=== PATIENT | male | born 1970 | race Hispanic/Latino ===

== ENCOUNTER 2018-07-14 07:23 | Observation (INO) | payer OTHER ==
[2018-07-14 07:29] VITALS: BMI 31.1
--- NOTE | 2018-07-14 08:06 | ED PDOC ---
HPI: Chest Pain Time Seen by Provider: 07/14/18 07:32 Chief Complaint (Nursing): Chest Pain Chief Complaint (Provider): Chest Pain History Per: Patient History/Exam Limitations: no limitations Onset/Duration Of Symptoms: Hrs (x20) Additional Complaint(s): Patient is 47 y/o male with no significant medical history who presents to the ED complaining of palpitations for the past x20 hours. Patient states he has had these symptoms in the past but was never diagnosed with anything. Patient returned from [place] about a week ago. He reports associated nausea, light headedness and midsternal chest tightness. He denies calf pain or leg swelling. Past Medical History Reviewed: Historical Data, Nursing Documentation, Vital Signs Vital Signs: Last Vital Signs Temp 97.6 F 07/14/18 07:40 Pulse 101 H 07/14/18 09:52 Resp 17 07/14/18 07:40 BP 123/78 07/14/18 07:40 Pulse Ox 98 07/14/18 09:52 - Medical History PMH: No Chronic Diseases - Social History Current smoker - smoking cessation education provided: No Alcohol: Social - Allergies Allergies/Adverse Reactions: Allergies Allergy/AdvReac Type Severity Reaction Status Date / Time No Known Allergies Allergy Verified 07/14/18 07:48 Review of Systems ROS Statement: Except As Marked, All Systems Reviewed And Found Negative Constitutional: Negative for: Fever Cardiovascular: Positive for: Chest Pain, Palpitations, Light Headedness. Negative for: Edema (leg swelling) Gastrointestinal: Positive for: Nausea Musculoskeletal: Negative for: Leg Pain (calf pain) Physical Exam - Reviewed Nursing Documentation Reviewed: Yes Vital Signs Reviewed: Yes - Physical Exam Appears: Positive for: Non-toxic, No Acute Distress Head Exam: Positive for: ATRAUMATIC, NORMOCEPHALIC Skin: Positive for: Normal Color, Warm, Dry Eye Exam: Positive for: EOMI, Normal appearance, PERRL Neck: Positive for: Normal, Painless ROM, Supple Cardiovascular/Chest: Positive for: Irregularly Irregular Respiratory: Positive for: Normal Breath Sounds. Negative for: Respiratory Distress Gastrointestinal/Abdominal: Positive for: Normal Exam, Soft. Negative for: Tenderness Back: Positive for: Normal Inspection. Negative for: L CVA Tenderness, R CVA Tenderness Extremity: Positive for: Normal ROM. Negative for: Pedal Edema, Deformity Neurologic/Psych: Positive for: Alert, Oriented (x3). Negative for: Motor/ Sensory Deficits - Laboratory Results Result Diagrams: 07/14/18 08:10 07/14/18 08:10 - ECG ECG Rhythm: Positive for: Atrial Fibrillation (at 101) Rate: 101 O2 Sat by Pulse Oximetry: 98 (RA) Pulse Ox Interpretation: Normal Medical Decision Making Medical Decision Making: Time: 08:02 Impression: new onset afib Initial Plan: --CT head w/o contrast --EKG --CMP --Magnesium --Phosphorous --TSH --Troponin I --ED urine dipstick --CBC w/ diff --D Dimer --PTT --Prothrombin Time --CXR --UA Time: :43 CT Head FINDINGS: HEMORRHAGE: No intracranial hemorrhage. BRAIN: No mass effect or edema. No atrophy or chronic microvascular ischemic changes. VENTRICLES: Unremarkable. No hydrocephalus. CALVARIUM: Unremarkable. PARANASAL SINUSES: Unremarkable as visualized. No significant inflammatory changes. MASTOID AIR CELLS: Unremarkable as visualized. No inflammatory changes. OTHER FINDINGS: None. IMPRESSION: Normal CT of the Head. No intracranial mass, hemorrhage or evidence of acute infarct. Time: 10:[address] Baum ----- Scribe Attestation: Documented by Ish Herrera, acting as a scribe for Eden Hicks MD. Provider Scribe Attestation: All medical record entries made by the Scribe were at my direction and personally dictated by me. I have reviewed the chart and agree that the record accurately reflects my personal performance of the history, physical exam, medical decision making, and the department course for this patient. I have also personally directed, reviewed, and agree with the discharge instructions and disposition. Disposition - Disposition Forms: ELIKE (Frisian)
[2018-07-14 08:22] LABS: BASO % 0.5 % (0.0-2.0); EOS # 0.2 K/uL (0.0-0.7); EOS % 2.7 % (0.0-4.0); HEMOGLOBIN 17.6 g/dL (12.0-18.0); LYMPH # 1.7 K/uL (1.0-4.3); LYMPH % 22.5 % (20.0-40.0); MEAN CELL VOLUME 90.3 fl (80.0-94.0); MEAN CORPUSCULAR HEMOGLOBIN 31.4 pg (27.0-31.0); MEAN CORPUSCULAR HGB CONC 34.8 g/dL (33.0-37.0); MEAN PLATELET VOLUME 8.7 fl (7.2-11.7); MONO # 0.7 K/uL (0.0-0.8); MONO % 9.1 % (0.0-10.0); NEUT # 4.9 K/uL (1.8-7.0); NEUT % 65.2 % (50.0-75.0); NRBC % 0.2 % (0.0-0.0); RBC 5.61 Mil/uL (4.40-5.90); RED CELL DISTRIBUTION WIDTH 13.1 % (11.5-14.5); WHITE BLOOD COUNT 7.4 K/uL (4.8-10.8)
[2018-07-14 08:31] LABS: INR 1.2; PROTHROMBIN TIME 13.6 Seconds (9.8-13.1)
[2018-07-14 08:36] LABS: ALB/GLOB RATIO 1.2 (1.0-2.1); ALBUMIN 4.3 g/dL (3.5-5.0); ALT/SGPT 42 U/L (21-72); AST/SGOT 27 U/L (17-59); BLOOD UREA NITROGEN 15 mg/dl (9-20); CALCIUM 9.3 mg/dL (8.4-10.2); GFR AFRICAN-AMERICAN > 60; GFR NON-AFRICAN AMERICAN > 60
[2018-07-14 09:29] LABS: SQUAMOUS EPITHIAL < 1 /hpf (0-5); URINE BACTERIA RARE (<OCC); URINE BILIRUBIN NEGATIVE (NEGATIVE); URINE CLARITY CLEAR (Clear); URINE COLOR YELLOW (YELLOW); URINE GLUCOSE (UA) NEG (Normal); URINE LEUKOCYTE ESTERASE NEG Leu/uL (Negative); URINE PROTEIN NEGATIVE (NEGATIVE); URINE UROBILINOGEN 0.2-1.0 mg/dL (0.2-1.0)
[2018-07-14 09:31] LABS: URINE BLOOD NEGATIVE (NEGATIVE)
--- NOTE | 2018-07-14 09:44 | CT ---
Date of service: 07/14/2018 PROCEDURE: CT HEAD WITHOUT CONTRAST. HISTORY: Dizziness COMPARISON: Not available TECHNIQUE: Axial computed tomography images were obtained through the head/brain without intravenous contrast. Radiation dose: Total exam DLP = 885.13 mGy-cm. This CT exam was performed using one or more of the following dose reduction techniques: Automated exposure control, adjustment of the mA and/or kV according to patient size, and/or use of iterative reconstruction technique. FINDINGS: HEMORRHAGE: No intracranial hemorrhage. BRAIN: No mass effect or edema. No atrophy or chronic microvascular ischemic changes. VENTRICLES: Unremarkable. No hydrocephalus. CALVARIUM: Unremarkable. PARANASAL SINUSES: Unremarkable as visualized. No significant inflammatory changes. MASTOID AIR CELLS: Unremarkable as visualized. No inflammatory changes. OTHER FINDINGS: None. IMPRESSION: Normal CT of the Head. No intracranial mass, hemorrhage or evidence of acute infarct.
--- NOTE | 2018-07-14 11:13 | CARD ---
APPROVED REPORT Date of service: 07/14/2018 EKG Measurement Heart [id number] <Conclusion> Atrial fibrillation with rapid ventricular response Abnormal ECG
--- NOTE | 2018-07-14 11:58 | RAD ---
Date of service: 07/14/2018 HISTORY: New onset a fib COMPARISON: No prior. FINDINGS: LUNGS: No active pulmonary disease. PLEURA: No significant pleural effusion identified, no pneumothorax apparent. CARDIOVASCULAR: Normal. OSSEOUS STRUCTURES: No significant abnormalities. VISUALIZED UPPER ABDOMEN: Normal. OTHER FINDINGS: None. IMPRESSION: No active disease.
--- NOTE | 2018-07-14 12:05 | CP.PCM.HP ---
History of Present Illness - History of Present Illness History of Present Illness: 47 yo male with no significant PMH came in complaining of palpitation associated with chest discomfort, nausea, dizziness and mild SOB. Claimed he had similar episode about 2 yrs ago but did not last for 20 hrs like he had today. Present on Admission - Present on Admission Any Indicators Present on Admission: No History of DVT/PE: No History of Uncontrolled Diabetes: No Urinary Catheter: No Decubitus Ulcer Present: No Review of Systems - Review of Systems All systems: reviewed and no additional remarkable complaints except (aside from those mentioned above, 12 point system review were negative by me) Past Patient History - Infectious Disease Hx of Infectious Diseases: None - Tetanus Immunizations Tetanus Immunization: Unknown - Past Medical History & Family History Past Medical History?: No - Past Social History Smoking Status: Never Smoked Chewing Tobacco Use: No Cigar Use: No Alcohol: Social Home Situation {Lives}: With Family - PSYCHIATRIC Hx Substance Use: No Meds Allergies/Adverse Reactions: Allergies Allergy/AdvReac Type Severity Reaction Status Date / Time No Known Allergies Allergy Verified 07/14/18 07:48 Physical Exam - Constitutional Appears: No Acute Distress - Head Exam Head Exam: ATRAUMATIC - Eye Exam Eye Exam: absent: Scleral icterus - ENT Exam ENT Exam: Mucous Membranes Moist - Neck Exam Neck exam: Negative for: Meningismus - Respiratory Exam Respiratory Exam: absent: Rales, Rhonchi, Wheezes, Respiratory Distress - Cardiovascular Exam Cardiovascular Exam: REGULAR RHYTHM, +S1, +S2 - GI/Abdominal Exam GI & Abdominal Exam: Soft. absent: Tenderness - Rectal Exam Rectal Exam: Deferred - Extremities Exam Extremities exam: Negative for: calf tenderness, pedal edema - Back Exam Back exam: absent: NORMAL INSPECTION - Neurological Exam Neurological exam: Alert, Oriented x3 - Psychiatric Exam Psychiatric exam: Normal Affect - Skin Skin Exam: Dry, Intact Results - Vital Signs Recent Vital Signs: Last Vital Signs Temp 97.8 F 07/14/18 11:19 Pulse 69 07/14/18 11:19 Resp 16 07/14/18 11:19 BP 123/69 07/14/18 11:19 Pulse Ox 97 07/14/18 11:19 - Labs Result Diagrams: 07/14/18 08:10 07/14/18 08:10 Labs: Laboratory Results - last 24 hr 07/14/18 07/14/18 07/14/18 08:10 08:10 08:10 WBC 7.4 RBC 5.61 Hgb 17.6 Hct 50.7 MCV 90.3 MCH 31.4 H MCHC 34.8 RDW 13.1 Plt Count 220 MPV 8.7 Neut % (Auto) 65.2 Lymph % (Auto) 22.5 [place] % (Auto) 9.1 Eos % (Auto) 2.7 Baso % (Auto) 0.5 Neut # (Auto) 4.9 Lymph # (Auto) 1.7 [place] # (Auto) 0.7 Eos # (Auto) 0.2 Baso # (Auto) 0.0 PT 13.6 H INR 1.2 APTT 40.0 H D-Dimer, Quantitative 28 Sodium 140 Potassium 4.1 Chloride 106 Carbon Dioxide 24 Anion Gap 14 BUN 15 Creatinine 1.0 Est GFR ( Amer) > 60 Est GFR (Non-Af Amer) > 60 Random Glucose 104 Calcium 9.3 Total Bilirubin 2.4 H AST 27 ALT 42 Alkaline Phosphatase 66 Troponin I < 0.0120 Total Protein 7.7 Albumin 4.3 Globulin 3.5 Albumin/Globulin Ratio 1.2 TSH 3rd Generation 1.79 Urine Color Urine Clarity Urine pH Ur Specific [place] Urine Protein Urine Glucose (UA) Urine Ketones Urine Blood Urine Nitrate Urine Bilirubin Urine Urobilinogen Ur Leukocyte Esterase Urine RBC (Auto) Urine Microscopic WBC Ur Squamous Epith Cells Urine Bacteria 07/14/18 09:03 WBC RBC Hgb Hct MCV MCH MCHC RDW Plt Count MPV Neut % (Auto) Lymph % (Auto) [place] % (Auto) Eos % (Auto) Baso % (Auto) Neut # (Auto) Lymph # (Auto) [place] # (Auto) Eos # (Auto) Baso # (Auto) PT INR APTT D-Dimer, Quantitative Sodium Potassium Chloride Carbon Dioxide Anion Gap BUN Creatinine Est GFR ( Amer) Est GFR (Non-Af Amer) Random Glucose Calcium Total Bilirubin AST ALT Alkaline Phosphatase Troponin I Total Protein Albumin Globulin Albumin/Globulin Ratio TSH 3rd Generation Urine Color Yellow Urine Clarity Clear Urine pH 5.0 Ur Specific [place] 1.021 Urine Protein Negative Urine Glucose (UA) Neg Urine Ketones Negative Urine Blood Negative Urine Nitrate Negative Urine Bilirubin Negative Urine Urobilinogen 0.2-1.0 Ur Leukocyte Esterase Neg Urine RBC (Auto) 2 Urine Microscopic WBC 1 Ur Squamous Epith Cells < 1 Urine Bacteria Rare Assessment & Plan - Assessment and Plan (Free Text) Assessment: 47 yo male with no significant PMH came in complaining of palpitation associated with chest discomfort, nausea, dizziness and mild SOB. Claimed he had similar episode about 2 yrs ago but did not last for 20 hrs like he had today. 1. New Onset AFib converted spontaneously to NSR serial Troponin EKG in am ECHO cardiology consult with Dr Garcia
[2018-07-14 13:41] LABS: BARBITURATES, UR NEGATIVE (NEGATIVE); BENZODIAZEPINES, UR NEGATIVE (NEGATIVE); OPIATES, UR NEGATIVE (NEGATIVE); PHENCYCLIDINE, UR NEGATIVE (NEGATIVE)
[2018-07-14] MEDS: Enoxaparin 40 mg Syringe SC SCH (15:05)
[2018-07-14] MEDS ORDERED: Sodium Chloride 0.9% 50 ML IV ONE (15:19)
[2018-07-14] MEDS ORDERED: Iodixanol 320 MG/ML 100 ML BOTTLE IV ONE (15:19)
--- NOTE | 2018-07-14 16:07 | CT ---
Date of service: 07/14/2018 PROCEDURE: CT Chest with contrast (Pulmonary Angiogram) HISTORY: r/o PE COMPARISON: None available TECHNIQUE: Axial computed tomography images were obtained of the chest in the pulmonary arterial phase of enhancement. Coronal and sagittal reformatted images were created and reviewed. Intravenous contrast dose: 95 mL Visipaque 320 Radiation dose: Total exam DLP = 39.21 mGy-cm. This CT exam was performed using one or more of the following dose reduction techniques: Automated exposure control, adjustment of the mA and/or kV according to patient size, and/or use of iterative reconstruction technique. FINDINGS: PULMONARY ARTERIES: Unremarkable. No pulmonary embolism. AORTA: No acute findings. No thoracic aortic aneurysm. LUNGS: Unremarkable. No nodule, mass or pulmonary consolidation. PLEURAL SPACES: Unremarkable. No effusion or pneumothorax. HEART: Unremarkable. No cardiomegaly. No significant pericardial effusion. LYMPH NODES: No lymphadenopathy. BONES, CHEST WALL: Unremarkable. No fracture or destructive lesion OTHER FINDINGS: Unremarkable. IMPRESSION: No evidence of pulmonary embolism. No infiltrate/ effusion. Unremarkable examination.
--- NOTE | 2018-07-14 16:58 | US ---
Date of service: 07/14/2018 PROCEDURE: Bilateral lower extremity venous duplex Doppler. HISTORY: r/o dvt COMPARISON: None available. TECHNIQUE: Bilateral common femoral, superficial femoral, popliteal and posterior tibial veins were evaluated. Flow was assessed with color Doppler, compressibility, assessment of phasic flow and augmentation response. FINDINGS: COMMON FEMORAL VEIN: Right CFV: Unremarkable. Left CFV: Unremarkable. SUPERFICIAL FEMORAL VEIN: Right SFV: Unremarkable. Left SFV: Unremarkable. POPLITEAL VEIN: Right Popliteal: Unremarkable. Left Popliteal: Unremarkable. POSTERIOR TIBIAL VEIN: Right PTV: Unremarkable. Left PTV: Unremarkable. OTHER FINDINGS: None. IMPRESSION: No evidence of deep venous thrombosis.
[2018-07-14] MEDS ORDERED: Pneumococcal 23-Valent Vaccine IM ONE (21:00)
--- NOTE | 2018-07-15 00:21 | CON ---
Copied To: Oneal Garcia MD Attending MD: Oneal Garcia MD DATE: 07/14/2018 CARDIOLOGY CONSULTATION REASON FOR CONSULTATION: New-onset atrial fibrillation. 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 The patient started 20 hours prior to admission to experience palpitation, dizziness and nausea. The patient has no prior similar complaint in the past and was found to have rapid atrial fibrillation when he was admitted to the emergency room and upon admitting the patient to ICU, he converted to sinus rhythm. The patient had a bottle of wine . He denies chest pain. He had a [place] flight this past Sunday after he visted his son in [place] He is unaware of any prior cardiac history. SOCIAL HISTORY: Nonsmoker and nondrinker. 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 MEDICATIONS: The patient did receive pneumococcal vaccine and received aspirin 325 mg as a stat dose. REVIEW OF SYSTEMS: The patient did explain us nausea when he was having palpitation, but denies any vomiting. The patient did experience dizziness but no syncope or fall. PAST MEDICAL HISTORY: The patient has insignificant past medical history. He was recently placed on vitamin D because of low vitamin D level. PHYSICAL EXAMINATION: GENERAL: The patient is a middle-aged male. Does not appear to be in acute distress. VITAL SIGNS: Blood pressure 123/69, heart rate 69, temperature 97.2, respiration 16. HEENT: Normocephalic. NECK: No JVD. CHEST: Clear. HEART: S1, S2 are regular. ABDOMEN: Soft. EXTREMITIES: No edema. No calf tenderness. LABORATORY DATA: Hemoglobin and hematocrit 17.6 and 50.7, white count and platelet count are within normal limit. SMA-7: Sodium 140, potassium 4.1, chloride 106, CO2 of 24, glucose 104, BUN 15, creatinine 1. One set of troponin is negative. TSH level is within normal limit at 1.79. INR is 1.2. D-dimmer is 28. Total bilirubin is slightly elevated, 2.4. EKG: Atrial fibrillation at a rate of 101. Head CT scan without contrast: No acute findings. Chest x-ray in which could not be accessed on the [employer] database; however, official report stated no active disease. ASSESSMENT: 1. New paroxysmal atrial fibrillation, unlikely related to alcohol as the patient denies any ethyl alcohol abuse recently. The patient has normal thyroid-stimulating hormone level, nonhypertensive, nondiabetic. Has normal serum D-dimer. Possibility _Loan atrial fibrillation exist. 2. Mildly elevate total bilirubin at 2.5. 3. History of vitamin D deficiency. RECOMMENDATIONS: Continue current ICU monitoring. Start subcutaneous Lovenox at 30 mg daily. Obt[address] Chest CT angio to rule out PE Obtain venous Doppler of lower extremities. Urine for radiology physician alcohol level as well as echocardiographic study. In the meantime, I recommend performing hepatitis profile. Oneal Garcia MD MTDD
[2018-07-15 05:42] LABS: BASO # 0.1 K/uL (0.0-0.2); BASO % 0.9 % (0.0-2.0); EOS # 0.3 K/uL (0.0-0.7); EOS % 3.1 % (0.0-4.0); HEMOGLOBIN 16.4 g/dL (12.0-18.0); LYMPH # 1.5 K/uL (1.0-4.3); LYMPH % 18.2 % (20.0-40.0); MEAN CELL VOLUME 92.1 fl (80.0-94.0); MEAN CORPUSCULAR HEMOGLOBIN 31.3 pg (27.0-31.0); MEAN PLATELET VOLUME 9.2 fl (7.2-11.7); MONO # 0.7 K/uL (0.0-0.8); MONO % 8.1 % (0.0-10.0); NEUT # 5.8 K/uL (1.8-7.0); NEUT % 69.7 % (50.0-75.0); NRBC % 0.5 % (0.0-0.0); RBC 5.24 Mil/uL (4.40-5.90); RED CELL DISTRIBUTION WIDTH 12.9 % (11.5-14.5); WHITE BLOOD COUNT 8.3 K/uL (4.8-10.8)
[2018-07-15 06:02] LABS: LDL CHOLESTEROL 108 mg/dL (0-129)
[2018-07-15 06:16] LABS: BLOOD UREA NITROGEN 16 mg/dl (9-20); GFR AFRICAN-AMERICAN > 60; GFR NON-AFRICAN AMERICAN > 60; HDL CHOLESTEROL 28 MG/DL (30-70)
[2018-07-15] MEDS: Enoxaparin 40 mg Syringe SC SCH (09:45)
--- NOTE | 2018-07-15 11:36 | CARD ---
APPROVED REPORT Date of service: 07/15/2018 EKG Measurement Heart [id number] <Conclusion> Normal sinus rhythm Normal ECG
[2018-07-15 12:06] VITALS: TEMP 98.1
--- NOTE | 2018-07-15 14:38 | CARD ---
APPROVED REPORT Date of service: 07/15/2018 EXAM: Two-dimensional and M-mode echocardiogram with Doppler and color Doppler. Other Information Quality : GoodRhythm : NSR INDICATION Atrial Fibrillation 2D DIMENSIONS IVSd1.10 (0.7-1.1cm)LVDd4.61 (3.9-5.9cm) LVOT Diameter2.24 (1.8-2.4cm)PWd0.87 (0.7-1.1cm) IVSs1.83 (0.8-1.2cm)LVDs3.06 (2.5-4.0cm) FS (%) 33.7 %PWs1.50 (0.8-1.2cm) M-Mode DIMENSIONS Left Atrium (MM)3.97 (2.5-4.0cm)Aortic Root3.44 (2.2-3.7cm) LVDd5.62 (4.0-5.6cm)Aortic Cusp Exc.2.62 (1.5-2.0cm) IVSs2.12 cmFS (%) 47 % LVDs2.97 (2.0-3.8cm)PWs2.03 cm Aortic Valve AoV Peak Tgkeqwgg93.6cm/sAoV VTI15.9cmAO Peak GR.3mmHg LVOT Peak Ijavnjsj87.0cm/sLVOT VTI12.74cmAO Mean GR.2mmHg BUCK (VMAX)1.42cm2 Mitral Valve MV E Xuwfoaso74.2cm/sMV DECEL AFPV107ddVW A Iligcgbo58.0cm/s MV UIV06iiN/A ratio1.0MVA (PHT)2.86cm2 TDI Lateral E' Peak V11.57cm/sMedial E' Peak V6.60cm/sE/Lateral E'3.5 E/Medial E'6.1 Pulmonary Valve PV Peak Mlitwbcx195.4cm/s LEFT VENTRICLE The left ventricle is normal size. There is normal left ventricular wall thickness. The left ventricular ejection fraction is within the normal range. The Ejection Fraction is 55-60%. No regional wall motion abnormalities noted.. The left ventricular diastolic function is normal. No left ventricle thrombus noted on this study. There is no ventricular septal defect visualized. There is no mass noted in the left ventricle. RIGHT VENTRICLE The right ventricle is normal size. There is normal right ventricular wall thickness. The right ventricular systolic function is normal. ATRIA The left atrium size is normal. The right atrium size is normal. The interatrial septum is intact with no evidence for an atrial septal defect. AORTIC VALVE The aortic valve is normal in structure. No aortic regurgitation is present. There is no aortic valvular stenosis. MITRAL VALVE The mitral valve is normal in structure. There is no mitral valve stenosis. There is no mitral valve regurgitation noted. TRICUSPID VALVE The tricuspid valve is normal in structure. There is no tricuspid valve regurgitation noted. PULMONIC VALVE The pulmonary valve is normal in structure. There is mild pulmonic valvular regurgitation. GREAT VESSELS The aortic root is normal in size. The ascending aorta is normal in size. The pulmonary artery is normal. The IVC is normal in size and collapses >50% with inspiration. PERICARDIAL EFFUSION There is no pericardial effusion. <Conclusion> Mild pulmonic insufficiency Otherwise normal transthoracic echocardiogram. The Ejection Fraction is 55-60%.
--- NOTE | 2018-07-15 15:41 | CP.PCM.DIS ---
Provider - Provider Date of Admission: 07/14/18 10:15 Attending physician: Dao Soler MD Consults: Dr Radha Zaragoza Time Spent in preparation of Discharge (in minutes): 25 Diagnosis - Discharge Diagnosis (1) Atrial fibrillation Status: Acute Comment: converted spontaneouslly to sinus and had not recurred since Hospital Course - Lab Results Lab Results: Most Recent Lab Values WBC 8.3 K/uL (4.8-10.8) 07/15/18 04:20 RBC 5.24 Mil/uL (4.40-5.90) 07/15/18 04:20 Hgb 16.4 g/dL (12.0-18.0) 07/15/18 04:20 Hct 48.2 % (35.0-51.0) 07/15/18 04:20 MCV 92.1 fl (80.0-94.0) 07/15/18 04:20 MCH 31.3 pg (27.0-31.0) H 07/15/18 04:20 MCHC 34.0 g/dL (33.0-37.0) 07/15/18 04:20 RDW 12.9 % (11.5-14.5) 07/15/18 04:20 Plt Count 203 K/uL (130-400) 07/15/18 04:20 MPV 9.2 fl (7.2-11.7) 07/15/18 04:20 Neut % (Auto) 69.7 % (50.0-75.0) 07/15/18 04:20 Lymph % (Auto) 18.2 % (20.0-40.0) L 07/15/18 04:20 [place] % (Auto) 8.1 % (0.0-10.0) 07/15/18 04:20 Eos % (Auto) 3.1 % (0.0-4.0) 07/15/18 04:20 Baso % (Auto) 0.9 % (0.0-2.0) 07/15/18 04:20 Neut # (Auto) 5.8 K/uL (1.8-7.0) 07/15/18 04:20 Lymph # (Auto) 1.5 K/uL (1.0-4.3) 07/15/18 04:20 [place] # (Auto) 0.7 K/uL (0.0-0.8) 07/15/18 04:20 Eos # (Auto) 0.3 K/uL (0.0-0.7) 07/15/18 04:20 Baso # (Auto) 0.1 K/uL (0.0-0.2) 07/15/18 04:20 PT 13.6 Seconds (9.8-13.1) H 07/14/18 08:10 INR 1.2 07/14/18 08:10 APTT 40.0 Seconds (25.6-37.1) H 07/14/18 08:10 D-Dimer, Quantitative 28 ng/mlDDU (0-230) 07/14/18 08:10 Sodium 139 mmol/l (132-148) 07/15/18 04:20 Potassium 4.1 MMOL/L (3.6-5.0) 07/15/18 04:20 Chloride 102 mmol/L (98-107) 07/15/18 04:20 Carbon Dioxide 30 mmol/L (22-30) 07/15/18 04:20 Anion Gap 11 (10-20) 07/15/18 04:20 BUN 16 mg/dl (9-20) 07/15/18 04:20 Creatinine 1.1 mg/dl (0.8-1.5) 07/15/18 04:20 Est GFR ( Amer) > 60 07/15/18 04:20 Est GFR (Non-Af Amer) > 60 07/15/18 04:20 Random Glucose 94 mg/dL (75-110) 07/15/18 04:20 Calcium 9.0 mg/dL (8.4-10.2) 07/15/18 04:20 Phosphorus 3.1 mg/dl (2.5-4.5) 07/14/18 12:25 Magnesium 2.1 MG/DL (1.6-2.3) 07/14/18 12:25 Total Bilirubin 2.4 mg/dl (0.2-1.3) H 07/14/18 08:10 AST 27 U/L (17-59) 07/14/18 08:10 ALT 42 U/L (21-72) 07/14/18 08:10 Alkaline Phosphatase 66 U/L (38-126) 07/14/18 08:10 Troponin I < 0.0120 ng/mL (0.00-0.120) 07/14/18 23:50 Total Protein 7.7 G/DL (6.3-8.2) 07/14/18 08:10 Albumin 4.3 g/dL (3.5-5.0) 07/14/18 08:10 Globulin 3.5 gm/dL (2.2-3.9) 07/14/18 08:10 Albumin/Globulin Ratio 1.2 (1.0-2.1) 07/14/18 08:10 Triglycerides 108 mg/DL (0-149) 07/15/18 04:20 Cholesterol 168 mg/dL (0-199) 07/15/18 04:20 LDL Cholesterol Direct 108 mg/dL (0-129) 07/15/18 04:20 HDL Cholesterol 28 MG/DL (30-70) L 07/15/18 04:20 TSH 3rd Generation 1.96 mIU/ML (0.46-4.68) 07/15/18 04:20 Urine Color Yellow (YELLOW) 07/14/18 09:03 Urine Clarity Clear (Clear) 07/14/18 09:03 Urine pH 5.0 (5.0-8.0) 07/14/18 09:03 Ur Specific [place] 1.021 (1.003-1.030) 07/14/18 09:03 Urine Protein Negative mg/dL (NEGATIVE) 07/14/18 09:03 Urine Glucose (UA) Neg mg/dL (Normal) 07/14/18 09:03 Urine Ketones Negative mg/dL (NEGATIVE) 07/14/18 09:03 Urine Blood Negative (NEGATIVE) 07/14/18 09:03 Urine Nitrate Negative (NEGATIVE) 07/14/18 09:03 Urine Bilirubin Negative (NEGATIVE) 07/14/18 09:03 Urine Urobilinogen 0.2-1.0 mg/dL (0.2-1.0) 07/14/18 09:03 Ur Leukocyte Esterase Neg Dione/uL (Negative) 07/14/18 09:03 Urine RBC (Auto) 2 /hpf (0-3) 07/14/18 09:03 Urine Microscopic WBC 1 /hpf (0-5) 07/14/18 09:03 Ur Squamous Epith Cells < 1 /hpf (0-5) 07/14/18 09:03 Urine Bacteria Rare (<OCC) 07/14/18 09:03 Urine Opiates Screen Negative (NEGATIVE) 07/14/18 12:30 Urine Methadone Screen Negative (NEGATIVE) 07/14/18 12:30 Ur Barbiturates Screen Negative (NEGATIVE) 07/14/18 12:30 Ur Phencyclidine Scrn Negative (NEGATIVE) 07/14/18 12:30 Ur Amphetamines Screen Negative (NEGATIVE) 07/14/18 12:30 U Benzodiazepines Scrn Negative (NEGATIVE) 07/14/18 12:30 U Oth Cocaine Metabols Negative (NEGATIVE) 07/14/18 12:30 U Cannabinoids Screen Negative (NEGATIVE) 07/14/18 12:30 - Hospital Course Hospital Course: 47 yo male with no significant PMH came in with palpitation associated with chest discomfort, nausea, dizziness and mild SOB. Had similar episode about 2 yrs ago but did not last for 20 hrs like he had today and was not seen by a medical provider. Initial EKG showed Atrial Fibrillation with mild RVR which spontaneously converted to NSR. Patient had been asymptomatic since then and had no recurrence of AFib. Work ups were essentially normal. Patient advised to cut down on caffeine and alcohol. Also advised to take low dose ASA for prophylaxis. He will see his PCP in 2 - 4 weeks. Discharge Exam - Head Exam Head Exam: ATRAUMATIC - Eye Exam Eye Exam: absent: Scleral icterus - ENT Exam ENT Exam: Mucous Membranes Moist - Respiratory Exam Respiratory Exam: absent: Rales, Rhonchi, Wheezes, Respiratory Distress - Cardiovascular Exam Cardiovascular Exam: REGULAR RHYTHM, +S1, +S2 - GI/Abdominal Exam GI & Abdominal Exam: Soft. absent: Tenderness - Rectal Exam Rectal Exam: Deferred - Back Exam Back exam: absent: tenderness - Neurological Exam Neurological exam: Alert, Oriented x3 - Psychiatric Exam Psychiatric exam: Normal Affect - Skin Skin Exam: Dry, Intact Discharge Plan - Discharge Medications Prescriptions: Aspirin [Adult Low Dose Aspirin EC] 81 mg PO DAILY #30 tablet.dr - Follow Up Plan Condition: GOOD Disposition: HOME/ ROUTINE
[2018-07-15 15:43] VITALS: BP 120/70; PULSE 78; RESP 15; O2SAT 100
--- NOTE | 2018-07-15 16:34 | PN ---
Copied To: Oneal Garcia MD Attending MD: Oneal Garcia MD DATE: 07/15/2018 SUBJECTIVE: The patient denied any dizziness, palpitation, or nausea. There is no overnight. He denied any substernal chest pain. PHYSICAL EXAMINATION: VITAL SIGNS: Blood pressure 103/66, heart rate 64, temperature 97.8, and respirations 18. HEENT: Normocephalic. NECK: No JVD. CHEST: Clear. HEART: S1 and S2 regular. ABDOMEN: Soft. EXTREMITIES: No edema. LABORATORY DATA: Today's hemoglobin and hematocrit 16.4 and 48.2, white count 8.3, and platelet count 203,000. Today's SMA-7; sodium 139, potassium 4.1, chloride 102, CO2 of 30, glucose 94, BUN 16, and creatinine 1.1. Three sets of troponins are negative. Lipid profile is within normal limits except for HDL of 28. Urine drug screen is negative. CT angio of the chest, no evidence of pulmonary embolism. Venous Doppler of the lower extremities, no evidence of DVT. ASSESSMENT: 1. Paroxysmal atrial fibrillation, rule out alone atrial fibrillation. 2. Recently diagnosed vitamin D deficiency. RECOMMENDATIONS: Continue current prophylaxis with subcutaneous Lovenox 40 mg daily. The patient will undergo a bedside echocardiographic study today in ICU. The case was discussed with Dr. Freeman, the computer forwarding system markup clerk, who has evaluated the patient this morning for any further recommendation. Oneal Garcia MD
--- NOTE | 2018-07-15 19:50 | CON ---
Copied To: Beka Freemna MD Attending MD: Beka Freeman MD DATE: 07/15/2018 INPATIENT ELECTROPHYSIOLOGY CONSULTATION. LOCATION: The patient was seen in the ICU. PHYSICIANS REQUESTING CONSULT: Oneal Garcia MD as well as Dao oSler MD REASON FOR EVALUATION: 1. Palpitation. 2. Atrial fibrillation. HISTORY OF PRESENT ILLNESS: Mr. Donnie Okeefe is a very pleasant male hailing from [place] without any significant past medical history other than intermittent palpitations who came in to [facility] on the day of admission, 07/14/2018, with ongoing incessant palpitations lasting approximately 20 hours. Palpitations were associated with intermittent chest discomfort, nausea, vomiting, dizziness, and mild shortness of breath. 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 He has had a recent history over the last few years of intermittent palpitations usually prompted by caffeine use. His caffeine has been reduced over the course of years. The patient does take alcohol on a regular basis and does admit to alcohol use 2 days prior to admission. REVIEW OF SYSTEMS: A 12-point review of systems has been completed. Pertinent positives as mentioned in the history of present illness. SOCIAL HISTORY: Negative for tobacco or drug abuse. The aforementioned social history. LABORATORY DATA: On review of relevant lab work, the patient has a white count 17.4, H and H of 17.6 and 50.7, and platelets of 220. BUN and creatinine are 15 and 1, and glucose of 104. D-dimer was negative at 28. PT/INR is 13.6 and 1.2. Sodium of 140, potassium is 4.1, BUN and creatinine are 15 and 1. ALT and AST are within normal limits. Troponin is less than 0.012. TSH is within normal limits at 1.79. Renal function is within normal limits. PHYSICAL EXAMINATION GENERAL: A middle-aged male, in no acute distress, able to speak in complete sentences. Does speak with an [place] accent. HEENT: Head is normocephalic, atraumatic. There is no wilman facial asymmetry. Mucous membranes appear moist. NECK: Supple. No jugular venous distention. CHEST: Clear to auscultation bilaterally. CARDIOVASCULAR: Regular rate and rhythm, S1 and S2. No S3 or S4. ABDOMEN: Soft, nontender, nondistended, and obese. Positive bowel sounds. EXTREMITIES: No cyanosis, clubbing, or edema. Peripheral pulses are 2+ and symmetric in bilateral upper and lower extremities. On review of presenting EKG, the patient has atrial fibrillation with an irregular response, normal R-wave progression across the precordium. There is normal R-wave axis in the limb leads. Nonspecific ST-T wave changes are noted. Subsequent EKG, which is dated 07/15/2018, shows normal sinus rhythm, normal P-wave morphology, again normal R-waves in the limb leads. Normal R-wave progression is also noted. [place] interval is within normal limits at 174 milliseconds. No evidence of preexcitation. There does appear to be some degree of repolarization abnormality. QT and QTc are 388 and 424 respectively. ASSESSMENT AND PLAN: 1. Palpitations secondary to paroxysmal atrial fibrillation. At this point, from a medication standpoint, the patient is on no rate control agents either in the form of calcium channel-blockers or beta-blockers. On telemetry, the patient continues to be in normal sinus rhythm. The patient is urged to undergo therapeutic lifestyle modification in the form of weight loss, exercise, and refraining from excess alcohol or caffeine intake. I did discuss with him the ramifications of paroxysmal atrial fibrillation. 2. Atrial fibrillation (paroxysmal). The patient has a CHADS-VASc score of 0. At this point, current recommendations would be an aspirin or if there was some feeling there maybe some high risk features anticoagulation. At this point, I do not believe we need to anticoagulate with enoxaparin. The patient is to at least take a baby aspirin. I did discuss with him the natural progression of atrial fibrillation and how progression towards chronic atrial fibrillation is likely. I did discuss with him the risks of stroke and that he has a low stroke risk, but not zero. The patient is to watch out for signs and symptoms of stroke and avoid triggers. At this point, we would not put him on oral anticoagulation or other medications. I did discuss with him the mechanisms of atrial fibrillation as well as possibility of at some point requiring an atrial fibrillation ablation. Extensive time was spent in the patient's education, coordination of care, review of available medical records, and exam. The patient may follow up in the office for further evaluation and management. Thank you for allowing me to participate in the care of your patient. Please do not hesitate to call if you have any questions in regards to his care. Beka Freeman MD cc: MD Dao Ortiz MD
== END 2018-07-15 16:20 | disposition home or self-care (01) ==
LOC: H.ER 07:23 → INTOOBSV 10:15 → H.ERHOLD 10:15 → H.ICU/CCU 11:40
DX: I48.0 Paroxysmal atrial fibrillation (principal); E55.9 Vitamin D deficiency, unspecified; Z23 Encounter for immunization
CPT/HCPCS: 70450; 71045; 71275; 80048; 80053; 80061; 80320; 80324; 80345; 80346; 80349; 80353; 80358; 80361; 81003; 83735; 83992; 84100; 84443; 84484; 85025; 85378; 85610; 85730; 87081; 90471; 90732; 93005; 93306; 93970; 99285; G0378; J1650; Q9967